=== PATIENT | female | born 1995 | race Caucasian/White ===

== ENCOUNTER 2017-06-18 20:25 | Emergency (ER) | payer BC ==
[2017-06-18] MEDS ORDERED: Sodium Chloride 0.9% 1,000 ML IV ONE (21:13)
[2017-06-18] MEDS ORDERED: Ketorolac 30 MG/ML SDV IVPUSH ONE (21:13)
[2017-06-18] MEDS ORDERED: Ondansetron 4 MG/2 ML SDV IVPUSH ONE (21:13)
[2017-06-18] MEDS ORDERED: Alum Hydrox/Mag Hydrox/Simeth 15 ML, Metoclopramide 5 MG, Lidocaine 2% 5 ML PO ONE ×3 (21:14)
[2017-06-18] MEDS ORDERED: Pantoprazole 40 MG Vial IVPUSH ONE (21:14)
[2017-06-18] MEDS ORDERED: Sodium Chloride 0.9% 2.5 ML Syringe FLUSH PRN (21:14)
[2017-06-18] MEDS ORDERED: Sodium Chloride 0.9% 10 ML Syringe FLUSH PRN (21:14)
--- NOTE | 2017-06-18 21:15 | EDM.PDOC ---
ED HPI GENERAL MEDICAL PROBLEM - General Chief Complaint: Chest Pain Stated Complaint: SHARP STOMACH PAIN Time Seen by Provider: 06/18/17 21:04 - History of Present Illness INITIAL COMMENTS - FREE TEXT/NARRATIVE: HISTORY AND PHYSICAL: History of present illness: The patient is a healthy 21-year-old female with no past medical past surgical history who presents with complaints of epigastric pain that has been ongoing for the last 1 week and has been pretty constant. The patient says that it waxes and wanes in intensity but is always there and seems to get worse after she eats. She has had anorexia because of the pain. She has not had vomiting or diarrhea and in fact has not has many bowel movements this week as usual. She usually goes once a day and she has been more irregular. Bowel movements are not black or bloody. She has not had a cough runny nose shortness of breath or flank pain or urinary complaints. The patient is in a monogamous lesbian relationship and denies . The patient says she had a slight sore throat last week but that is improved and now she also tells me that she has had a fever for 4 days but it seemed to "break" last night. For the fever she's been only taking NyQuil [id number]-zbioyck and no Tylenol or ibuprofen. She has not taken any specific medications for her abdominal complaints such as Pepto- Bismol Tums or [id number] acid antacids. She has also not taken any over- the-counter pain medications for this. She describes the pain as a fullness and aching which gets sharp after eating. Currently in the ER she says it is just dull and she does feel somewhat bloated. She has no lower abdominal pain and she says that the discomfort does not localize right or left but sits in the epigastrium. She has no chest pain Review of systems: As per history of present illness and below otherwise all systems reviewed and negative. Past medical history: As per history of present illness and as reviewed below otherwise noncontributory. Surgical history: As per history of present illness and as reviewed below otherwise noncontributory. Social history: No reported history of drug or alcohol abuse. Family history: As per history of present illness and as reviewed below otherwise noncontributory. Physical exam: Gen.: Well-developed well-nourished thin female who is nontoxic and speaking clearly and easily in the ED. Vital signs have been reviewed by me. HEENT: Atraumatic, normocephalic, pupils reactive, negative for conjunctival pallor or scleral icterus, mucous membranes moist, throat clear of exudates but there is some posterior oropharyngeal erythema, there is no cervical adenopathy or nuchal rigidity, neck supple, nontender, trachea midline. Lungs: Clear to auscultation, breath sounds equal bilaterally, chest nontender. Heart: S1S2, regular, negative for clicks, rubs, or JVD. Abdomen: Soft, nondistended, there is only minimal tenderness on deep palpation in the epigastrium which does not localize right or left. Bowel sounds are hypoactive and there is no tympany on percussion. Negative for masses or hepatosplenomegaly. Pelvis: Stable nontender. Genitourinary: Deferred. Rectal: Deferred. Extremities: Atraumatic, negative for cords or calf pain. Neurovascular unremarkable. Neuro: Awake, alert, oriented. Cranial nerves II through XII unremarkable. Cerebellum unremarkable. Motor and sensory unremarkable throughout. Exam nonfocal. Diagnostics: EKG CBC CMP amylase lipase rapid strep influenza swab lactic acid UA UCG chest x -ray H. pylori Therapeutics: IV, IV fluids Zofran Protonix Toradol GI cocktail Rocephin I discussed with the patient and her partner at bedside the testing results and the care plan for outpatient follow-up. I've advised her to push hydration watch her diet avoid caffeinated products. I will give her Carafate and Protonix for home but if strongly advised that she needs an endoscopy to confirm the diagnosis and to rule out possible things that I'm not able to diagnose here in the ER. She states understanding I will give her the referral numbers for our clinics. Advised on reasons to return to the ED. I will also give her antibiotics for home for her UTI. She is aware that a urine culture was sent and she'll be contacted if the care plan changes Impression: Epigastric pain/distal esophagitis, UTI Definitive disposition and diagnosis as appropriate pending reevaluation and review of above. Middle Chest Pain Score (Numeric/FACES): 7 - Related Data Allergies Allergy/AdvReac Type Severity Reaction Status Date / Time No Known Allergies Allergy Verified 06/18/17 21:06 Home Meds: Home Meds . [No Known Home Meds] 06/18/17 [History] ED ROS GENERAL - Review of Systems Review Of Systems: ROS reveals no pertinent complaints other than HPI. ED EXAM, GENERAL - Physical Exam Exam: See Below (See dictation) Course - Vital Signs Last Recorded V/S: Last Vital Signs Temp 36.2 C 06/18/17 23:56 Pulse 86 06/18/17 23:56 Resp 17 06/18/17 23:56 BP 109/62 06/18/17 23:56 Pulse Ox 96 06/18/17 23:56 - Orders/Labs/Meds Orders: Active Orders 24 hr Category Date Time Status Cardiac Monitoring [RC] . DIRECTED Care 06/18/17 21:13 Active EKG Documentation Completion [RC] STAT Care 06/18/17 21:13 Active Oxygen Therapy, ED [RC] ASDIRECTED Care 06/18/17 21:13 Active Pulse Oximetry [RC] ASDIRECTED Care 06/18/17 21:13 Active Abdomen Pelvis w Cont [CT] Stat Exams 06/18/17 22:19 Taken Chest 2V [CR] Stat Exams 06/18/17 21:13 Taken CULTURE STREP A CONFIRMATION [RM] Stat Lab 06/18/17 21:40 Results CULTURE URINE [RM] Stat Lab 06/18/17 21:44 Received STREP SCRN A RAPID W CULT CONF [RM] Stat Lab 06/18/17 21:40 Results Sodium Chloride 0.9% [Saline Flush] Med 06/18/17 21:14 Active 10 ml FLUSH ASDIRECTED PRN Sodium Chloride 0.9% [Saline Flush] Med 06/18/17 21:14 Active 2.5 ml FLUSH ASDIRECTED PRN cefTRIAXone [Rocephin in Dextrose,Iso-Osm 1 GM/50 ML] 1 Med 06/18/17 23:42 Active gm Premix Bag 1 bag IV ONETIME Saline Lock Insert [OM.PC] Stat Oth 06/18/17 21:13 Ordered Medication Orders Ceftriaxone Sodium/Dextrose 1 (gm/ Premix) 50 mls @ 100 mls/hr IV ONETIME ONE Stop: 06/19/17 00:11 Last Admin: 06/18/17 23:55 Dose: 100 mls/hr Sodium Chloride (Saline Flush) 10 ml FLUSH ASDIRECTED PRN PRN Reason: Keep Vein Open Last Admin: 06/18/17 21:30 Dose: 10 ml Sodium Chloride (Saline Flush) 2.5 ml FLUSH ASDIRECTED PRN PRN Reason: Keep Vein Open Last Admin: 06/18/17 21:30 Dose: 2.5 ml Labs: Laboratory Tests 06/18/17 06/18/17 06/18/17 Range/Units 20:25 21:25 21:25 WBC 7.50 (4.0-11.0) K/uL RBC 4.77 (4.30-5.90) M/uL Hgb 13.8 (12.0-16.0) g/dL Hct 40.1 (36.0-46.0) % MCV 84.1 (80.0-98.0) fL MCH 28.9 (27.0-32.0) pg MCHC 34.4 (31.0-37.0) g/dL RDW Std Deviation 39.0 (28.0-62.0) fl RDW Coeff of Demetrio 13 (11.0-15.0) % Plt Count 186 (150-400) K/uL MPV 10.00 (7.40-12.00) fL Neut % (Auto) 69.1 (48.0-80.0) % Lymph % (Auto) 16.7 (16.0-40.0) % Anderson % (Auto) 13.6 (0.0-15.0) % Eos % (Auto) 0.5 (0.0-7.0) % Baso % (Auto) 0.1 (0.0-1.5) % Neut # (Auto) 5.2 (1.4-5.7) K/uL Lymph # (Auto) 1.3 (0.6-2.4) K/uL Anderson # (Auto) 1.0 H (0.0-0.8) K/uL Eos # (Auto) 0.0 (0.0-0.7) K/uL Baso # (Auto) 0.0 (0.0-0.1) K/uL Nucleated RBC % 0.0 /100WBC Nucleated RBCs # 0 K/uL Lactate 0.9 (0.20-2.00) mmol/L Sodium (136-146) mmol/L Potassium (3.5-5.1) mmol/L Chloride (98-110) mmol/L Carbon Dioxide (21-31) mmol/L BUN (6.0-23.0) mg/dL Creatinine (0.6-1.5) mg/dL Est Cr Clr Drug Dosing mL/min Estimated GFR (MDRD) ml/min Glucose (60-110) mg/dL Calcium (8.8-10.8) mg/dL Total Bilirubin (0.1-1.5) mg/dL AST (5-40) IU/L ALT (8-54) IU/L Alkaline Phosphatase (40-150) Total Protein (6.0-8.0) g/dL Albumin (3.5-5.0) g/dL Globulin (2.0-3.5) g/dL Albumin/Globulin Ratio (1.3-2.8) Amylase (10-90) U/L Lipase (7-80) U/L Urine Color Urine Appearance Urine pH (5.0-8.0) Ur Specific [place] (1.001-1.035) Urine Protein (NEGATIVE) mg/dL Urine Glucose (UA) (NEGATIVE) mg/dL Urine Ketones (NEGATIVE) mg/dL Urine Occult Blood (NEGATIVE) Urine Nitrite (NEGATIVE) Urine Bilirubin (NEGATIVE) Urine Ictotest Urine Urobilinogen (<2.0) EU/dL Ur Leukocyte Esterase (NEGATIVE) Urine RBC (0-2/HPF) Urine WBC (0-5/HPF) Ur Epithelial Cells (NONE-FEW) Urine Bacteria (NEGATIVE) Urine Mucus (NONE-MOD) Urine HCG, Qual (NEGATIVE) H. pylori IgG Antibody NEGATIVE (NEG) 06/18/17 06/18/17 06/18/17 Range/Units 21:25 21:44 21:44 WBC (4.0-11.0) K/uL RBC (4.30-5.90) M/uL Hgb (12.0-16.0) g/dL Hct (36.0-46.0) % MCV (80.0-98.0) fL MCH (27.0-32.0) pg MCHC (31.0-37.0) g/dL RDW Std Deviation (28.0-62.0) fl RDW Coeff of Demetrio (11.0-15.0) % Plt Count (150-400) K/uL MPV (7.40-12.00) fL Neut % (Auto) (48.0-80.0) % Lymph % (Auto) (16.0-40.0) % Anderson % (Auto) (0.0-15.0) % Eos % (Auto) (0.0-7.0) % Baso % (Auto) (0.0-1.5) % Neut # (Auto) (1.4-5.7) K/uL Lymph # (Auto) (0.6-2.4) K/uL Anderson # (Auto) (0.0-0.8) K/uL Eos # (Auto) (0.0-0.7) K/uL Baso # (Auto) (0.0-0.1) K/uL Nucleated RBC % /100WBC Nucleated RBCs # K/uL Lactate (0.20-2.00) mmol/L Sodium 138 (136-146) mmol/L Potassium 4.1 (3.5-5.1) mmol/L Chloride 102 (98-110) mmol/L Carbon Dioxide 21 (21-31) mmol/L BUN 13 (6.0-23.0) mg/dL Creatinine 0.7 (0.6-1.5) mg/dL Est Cr Clr Drug Dosing 121.01 mL/min Estimated GFR (MDRD) > 60.0 ml/min Glucose 80 (60-110) mg/dL Calcium 9.4 (8.8-10.8) mg/dL Total Bilirubin 0.6 (0.1-1.5) mg/dL AST 16 (5-40) IU/L ALT 7 L (8-54) IU/L Alkaline Phosphatase 57 (40-150) Total Protein 7.5 (6.0-8.0) g/dL Albumin 4.2 (3.5-5.0) g/dL Globulin 3.3 (2.0-3.5) g/dL Albumin/Globulin Ratio 1.3 (1.3-2.8) Amylase 29 (10-90) U/L Lipase < 9 (7-80) U/L Urine Color YELLOW Urine Appearance SLT CLOUDY Urine pH 6.0 (5.0-8.0) Ur Specific [place] >= 1.030 (1.001-1.035) Urine Protein TRACE (NEGATIVE) mg/dL Urine Glucose (UA) NEGATIVE (NEGATIVE) mg/dL Urine Ketones >=80 (NEGATIVE) mg/dL Urine Occult Blood TRACE-INTACT (NEGATIVE) Urine Nitrite NEGATIVE (NEGATIVE) Urine Bilirubin MODERATE H (NEGATIVE) Urine Ictotest NEGATIVE Urine Urobilinogen 0.2 (<2.0) EU/dL Ur Leukocyte Esterase MODERATE (NEGATIVE) Urine RBC 0-2 (0-2/HPF) Urine WBC 2-8 (0-5/HPF) Ur Epithelial Cells FEW (NONE-FEW) Urine Bacteria 1+ H (NEGATIVE) Urine Mucus FEW (NONE-MOD) Urine HCG, Qual NEGATIVE (NEGATIVE) H. pylori IgG Antibody (NEG) Meds: Medications Generic Name Dose Route Start Last Admin Trade Name Scooter PRN Reason Stop Dose Admin Ceftriaxone Sodium/Dextrose 1 50 mls @ 100 mls/hr 06/18/17 23:42 06/18/17 23: 55 gm/ Premix IV 06/19/17 00:11 100 mls/hr ONETIME ONE Administration Sodium Chloride 10 ml 06/18/17 21:14 06/18/17 21:30 Saline Flush FLUSH 10 ml ASDIRECTED PRN Administration Keep Vein Open Sodium Chloride 2.5 ml 06/18/17 21:14 06/18/17 21:30 Saline Flush FLUSH 2.5 ml ASDIRECTED PRN Administration Keep Vein Open Discontinued Medications Generic Name Dose Route Start Last Admin Trade Name Scooter PRN Reason Stop Dose Admin Al Hydroxide/Mg Hydroxide 15 0 ml 06/18/17 21:14 06/18/17 21:29 ml/ Metoclopramide HCl 5 mg/ PO 06/18/17 21:15 25 each Lidocaine HCl 5 ml ONETIME ONE Administration Sodium Chloride 1,000 mls @ 999 mls/hr 06/18/17 21:13 06/18/17 21:21 Normal Saline IV 06/18/17 22:13 999 mls/hr STAT ONE Administration Iopamidol 500 ml 06/18/17 23:06 06/18/17 23:08 Isovue Multipack-370 (76%) IVPUSH 06/18/17 23:07 100 ml ONETIME STA Administration Ketorolac Tromethamine 30 mg 06/18/17 21:13 06/18/17 21:28 Toradol IVPUSH 06/18/17 21:14 30 mg ONETIME ONE Administration Ondansetron HCl 4 mg 06/18/17 21:13 06/18/17 21:29 Zofran IVPUSH 06/18/17 21:14 4 mg ONETIME ONE Administration Pantoprazole Sodium 40 mg 06/18/17 21:14 06/18/17 21:29 Protonix Iv IVPUSH 06/18/17 21:15 40 mg NOW ONE Administration Departure - Departure Time of Disposition: 00:03 Disposition: Home, Self-Care 01 Condition: Good Clinical Impression: Esophagitis UTI (urinary tract infection) Qualifiers: Urinary tract infection type: site unspecified Hematuria presence: without hematuria Qualified Code(s): N39.0 - Urinary tract infection, site not specified - Discharge Information Referrals: PCP,None [Primary Care Provider] - Forms: ED Department Discharge Additional Instructions: The following information is given to patients seen in the emergency department who are being discharged to home. This information is to outline your options for follow-up care. We provide all patients seen in our emergency department with a follow-up referral. The need for follow-up, as well as the timing and circumstances, are variable depending upon the specifics of your emergency department visit. If you don't have a primary care physician on staff, we will provide you with a referral. We always advise you to contact your personal physician following an emergency department visit to inform them of the circumstance of the visit and for follow-up with them and/or the need for any referrals to a consulting specialist. The emergency department will also refer you to a specialist when appropriate. This referral assures that you have the opportunity for followup care with a specialist. All of these measure are taken in an effort to provide you with optimal care, which includes your followup. Under all circumstances we always encourage you to contact your private physician who remains a resource for coordinating your care. When calling for followup care, please make the office aware that this follow-up is from your recent emergency room visit. If for any reason you are refused follow-up, please contact the [facility] emergency department at and ask to speak to the emergency department charge nurse. Primary care- [place] [address] [facility] [address] [place] [address] [address] [place] [address] Please contact one of our providers in the clinic to reevaluate our care plan and to reevaluate any new symptoms in the next few days. These also contact our surgery department to schedule an upper endoscopy as we discussed. Take all medications as prescribed and you may start these prescriptions tomorrow. Push hydration and avoid caffeinated products and fatty foods junk foods spicy foods and fast foods. Return to ER as needed and as discussed - My Orders Last 24 Hours: My Active Orders 06/18/17 21:13 Cardiac Monitoring [RC] . DIRECTED EKG Documentation Completion [RC] STAT Oxygen Therapy, ED [RC] ASDIRECTED Pulse Oximetry [RC] ASDIRECTED Chest 2V [CR] Stat Saline Lock Insert [OM.PC] Stat 06/18/17 21:14 Sodium Chloride 0.9% [Saline Flush] 10 ml FLUSH ASDIRECTED PRN Sodium Chloride 0.9% [Saline Flush] 2.5 ml FLUSH ASDIRECTED PRN 06/18/17 21:40 CULTURE STREP A CONFIRMATION [RM] Stat STREP SCRN A RAPID W CULT CONF [RM] Stat 06/18/17 21:44 CULTURE URINE [RM] Stat 06/18/17 22:19 Abdomen Pelvis w Cont [CT] Stat 06/18/17 23:42 cefTRIAXone [Rocephin in Dextrose,Iso-Osm 1 GM/50 ML] 1 gm Premix Bag 1 bag IV ONETIME - Assessment/Plan Last 24 Hours: My Active Orders 06/18/17 21:13 Cardiac Monitoring [RC] . DIRECTED EKG Documentation Completion [RC] STAT Oxygen Therapy, ED [RC] ASDIRECTED Pulse Oximetry [RC] ASDIRECTED Chest 2V [CR] Stat Saline Lock Insert [OM.PC] Stat 06/18/17 21:14 Sodium Chloride 0.9% [Saline Flush] 10 ml FLUSH ASDIRECTED PRN Sodium Chloride 0.9% [Saline Flush] 2.5 ml FLUSH ASDIRECTED PRN 06/18/17 21:40 CULTURE STREP A CONFIRMATION [RM] Stat STREP SCRN A RAPID W CULT CONF [RM] Stat 06/18/17 21:44 CULTURE URINE [RM] Stat 06/18/17 22:19 Abdomen Pelvis w Cont [CT] Stat 06/18/17 23:42 cefTRIAXone [Rocephin in Dextrose,Iso-Osm 1 GM/50 ML] 1 gm Premix Bag 1 bag IV ONETIME
[2017-06-18 22:00] LABS: CHLORIDE,CL 102 mmol/L (98-110); SODIUM,NA 138 mmol/L (136-146)
[2017-06-18] MEDS ORDERED: Iopamidol 755 MG/ML 500 ML Multipack Bottle IVPUSH STA (23:06)
[2017-06-18] MEDS ORDERED: cefTRIAXone 1 GM in Premix Bag 1 BAG IV ONE (23:42)
--- NOTE | 2017-06-20 15:16 | CR ---
EXAM DATE: 06/18/17 PATIENT'S AGE: 21 Patient: RAFAEL WARD Facility: [place], [place] Site . Site : 1995 Study: XRay Chest [id number]/18/2017 10:49:22 PM Ordering Physician: Myles Merino Final Report: INDICATION: pain/sob INDICATION: Pain. Shortness of breath. TECHNIQUE: Chest 2 views. COMPARISON: None FINDINGS: Cardiovascular and mediastinum: Heart size and vasculature are normal in caliber and appearance. Mediastinum is within normal limits. Lungs and pleural spaces: Lungs are clear. No sign of infiltrate or mass. No sign of pleural effusion. No pneumothorax. Bones and soft tissues: No significant findings. IMPRESSION: Lungs are clear. Dictated by Ranjeet Fernandes MD @ 06/18/2017 11:09:44 PM Dictated by: Ranjeet Fernandes MD @ 06/18/2017 23:09:50 (Electronic Signature) Report Signed by Proxy. ALEX
--- NOTE | 2017-06-20 15:21 | CT ---
EXAM DATE: 06/18/17 PATIENT'S AGE: 21 Patient: RAFAEL WARD Facility: [place], [place] Site . Site : 1995 Study: CT Abdomen/Pelvis [id number]/18/2017 11:09:55 PM Ordering Physician: Myles Merino Final Report: INDICATION: Abdominal pain TECHNIQUE: CT Abdomen and pelvis with i.v. contrast. Coronal and sagittal reformats were obtained. CONTRAST: 100 mL Isovue 370 COMPARISON: None FINDINGS: Lower chest: Unremarkable. Liver: Unremarkable. Spleen: Unremarkable. Pancreas: Unremarkable. Gallbladder: Unremarkable. Kidney: Unremarkable. No kidney or ureteral stones or obstruction seen. Adrenal: Unremarkable. GI tract: Mild wall thickening of the distal esophagus is present. Several paraesophageal lymph nodes are noted measuring up to 8 mm. The appendix is not identified. Vascular: Unremarkable. Peritoneum: Unremarkable. No pneumoperitoneum is seen. Small amount of ascites is present and is likely physiologic in origin. Pelvis: Unremarkable. Soft tissue: Unremarkable. Bones: Mild levoscoliosis of the lumbar spine is noted. IMPRESSION: 1. Mild wall thickening of the distal esophagus is present. Several paraesophageal lymph nodes are noted measuring up to 8 mm. Further evaluation with endoscopy is recommended. Dictated by Alfred Faith MD @ 06/18/2017 11:31:38 PM Dictated by: Alfred Faith MD @ 06/18/2017 23:31:42 (Electronic Signature) Report Signed by Proxy. [facility]
== END 2017-06-19 00:30 | disposition home or self-care (01) ==
LOC: MW.ED 20:25
DX: K20.9 Esophagitis, unspecified (principal); N39.0 Urinary tract infection, site not specified
CPT/HCPCS: 36415; 71020; 74177; 80053; 81001; 81025; 82150; 83605; 83690; 85025; 86677; 87081; 87086; 87804; 87880; 93005; 96361; 96365; 96375; 99285; A9270; C9113; J0696; J1885; J2405; J7040; Q9967

== ENCOUNTER 2018-09-29 13:41 | Inpatient (IN) | payer OTHER ==
[2018-09-29] MEDS ORDERED: Dinoprostone 10 MG Insert VAG PRN (13:49)
[2018-09-29] MEDS ORDERED: Lidocaine 1% 50 ML MDV INJECT PRN (13:49)
[2018-09-29] MEDS ORDERED: Carboprost Tromethamine 250 MCG/1 ML Amp IM PRN (13:49)
[2018-09-29] MEDS ORDERED: Misoprostol 200 MCG Tab PO PRN (13:49)
[2018-09-29] MEDS ORDERED: Terbutaline 1 MG/ML SDV SUBCUT PRN (13:49)
[2018-09-29] MEDS ORDERED: Methylergonovine 0.2 MG/1 ML Amp IM PRN ×2 (13:49→22:33)
[2018-09-29] MEDS ORDERED: Nalbuphine 10 MG/1 ML Vial IVPUSH PRN (13:49)
[2018-09-29] MEDS ORDERED: Water For Irrigation,Sterile 1,000 ML Container IRR PRN (13:49)
[2018-09-29] MEDS ORDERED: Tranexamic Acid 1,000 MG in Sodium Chloride 0.9% 100 ML IV PRN (13:49)
[2018-09-29] MEDS ORDERED: Butorphanol 1 MG/ML SDV IVPUSH PRN (13:49)
[2018-09-29] MEDS ORDERED: Ondansetron 4 MG/2 ML SDV IV PRN (13:49)
[2018-09-29] MEDS ORDERED: Sodium Chloride 0.9% 10 ML Syringe FLUSH PRN (13:49)
[2018-09-29] MEDS ORDERED: Sodium Chloride 0.9% 2.5 ML Syringe FLUSH PRN (13:49)
[2018-09-29] MEDS ORDERED: Oxytocin/0.9 % Sodium Chloride 30 UNIT/500 ML BAG IV SCH ×2 (14:00)
[2018-09-29] MEDS ORDERED: Ampicillin 2 GM in Sodium Chloride 0.9% 100 ML IV ONE (14:15)
[2018-09-29] MEDS: Lactated Ringers 1,000 ML IV SCH ×2 (14:30→19:56)
[2018-09-29] MEDS: Ampicillin 1 GM in Sodium Chloride 0.9% 50 ML IV SCH ×2 (18:22→21:51)
--- NOTE | 2018-09-29 22:31 | PCM.DEL ---
L & D Note - General Info Date of Service: 09/29/18 Mother's Due Date: 09/26/18 - Delivery Note Labor: Induced by Oxytocin Delivery Outcome: Livebirth Infant Delivery Method: Spontaneous Vaginal Delivery-Single Presentation: Left Occiput Anterior (ELENA) Nuchal Cord: None Prep: Other Anesthesia Type: None Episiotomy Type: None Laceration: 2nd Degree Suture type: Vicryl Suture size: 3-0 Placenta: Intact, Spontaneous Cord: 3 Vessels Estimated Blood Loss: 300 Resuscitation Needed: No : Suctioned Score 1 min: 9 Score 5 min: 9 Delivery Comments (Free Text/Narrative):: Liveborn female 9/9. Rapid progress from 4 cm, SROM at 2120 to delivery at 2205 - General Info Date of Service: 09/29/18 - Patient Data Weight - Most Recent: 78.925 kg Lab Results Last 24 Hours: Laboratory Results - last 24 hr 09/29/18 09/29/18 Range/Units 14:27 14:27 WBC 9.72 (4.0-11.0) K/uL RBC 4.43 (4.30-5.90) M/uL Hgb 12.8 (12.0-16.0) g/dL Hct 37.5 (36.0-46.0) % MCV 84.7 (80.0-98.0) fL MCH 28.9 (27.0-32.0) pg MCHC 34.1 (31.0-37.0) g/dL RDW Std Deviation 44.8 (28.0-62.0) fl RDW Coeff of Demetrio 15 (11.0-15.0) % Plt Count 159 (150-400) K/uL MPV 9.70 (7.40-12.00) fL Nucleated RBC % 0.0 /100WBC Nucleated RBCs # 0 K/uL Blood Type B NEGATIVE Antibody Screen NEGATIVE Med Orders - Current: Current Medications Butorphanol Tartrate (Stadol) 1 mg IVPUSH Q1H PRN PRN Reason: Pain Last Admin: 09/29/18 21:11 Dose: 1 mg Carboprost Tromethamine (Hemabate Ds) 250 mcg IM ASDIRECTED PRN PRN Reason: Post Hemorrhage Dinoprostone (Cervidil) 10 mg VAG ONETIME PRN PRN Reason: Cervical Ripening Ampicillin Sodium 1 gm/ Sodium (Chloride) 50 mls @ 100 mls/hr IV Q4H [facility] Last Admin: 09/29/18 21:51 Dose: 100 mls/hr Lactated Ringer's (Ringers, Lactated) 1,000 mls @ 150 mls/hr IV ASDIRECTED DAYANNA Last Admin: 09/29/18 19:56 Dose: 150 mls/hr Oxytocin/Sodium Chloride (Oxytocin 30 Unit/500 Ml-Ns) 30 unit in 500 mls @ 999 mls/hr IV TITRATE DAYANNA Oxytocin/Sodium Chloride (Oxytocin 30 Unit/500 Ml-Ns) 30 unit in 500 mls @ 2 mls/hr IV TITRATE DAYANNA; Protocol Last Titration: 09/29/18 21:00 Dose: 6 munits/min, 6 mls/hr Tranexamic Acid 1,000 mg/ (Sodium Chloride) 110 mls @ 660 mls/hr IV ONETIME PRN PRN Reason: Bleeding Lidocaine HCl (Xylocaine 1%) 50 ml INJECT ONETIME PRN PRN Reason: Laceration repair Methylergonovine Maleate (Methergine) 0.2 mg IM ASDIRECTED PRN PRN Reason: Post Hemorrhage Misoprostol (Cytotec) 200 mcg PO ONETIME PRN PRN Reason: Post Hemorrhage Nalbuphine HCl (Nubain) 10 mg IVPUSH Q1H PRN PRN Reason: Pain (severe 7-10) Ondansetron HCl (Zofran) 4 mg IV Q6H PRN PRN Reason: Nausea/Vomiting Sodium Chloride (Saline Flush) 10 ml FLUSH ASDIRECTED PRN PRN Reason: Keep Vein Open Sodium Chloride (Saline Flush) 2.5 ml FLUSH ASDIRECTED PRN PRN Reason: Keep Vein Open Sterile Water (Sterile Water For Irrigation) 1,000 ml IRR ASDIRECTED PRN PRN Reason: delivery Terbutaline Sulfate (Brethine) 0.25 mg SUBCUT ASDIRECTED PRN PRN Reason: Tacysystole Discontinued Medications Ampicillin Sodium 2 gm/ Sodium (Chloride) 100 mls @ 200 mls/hr IV ONETIME ONE Stop: 09/29/18 14:44 Last Admin: 09/29/18 14:40 Dose: 200 mls/hr - Problem List & Annotations (1) Vaginal delivery SNOMED Code(s): 528676607 Code(s): O80 - ENCOUNTER FOR FULL-TERM UNCOMPLICATED DELIVERY Status: Acute Current Visit: Yes - Problem List Review Problem List Initiated/Reviewed/Updated: Yes
[2018-09-29] MEDS ORDERED: Witch Hazel Medicated Pads 40/Jar TOP PRN (22:33)
[2018-09-29] MEDS ORDERED: Ibuprofen 800 MG Tab PO PRN (22:33)
[2018-09-29] MEDS ORDERED: Acetaminophen 500 MG Tab PO PRN ×2 (22:33)
[2018-09-29] MEDS ORDERED: oxyCODONE 5 MG Tab PO PRN (22:33)
[2018-09-29] MEDS ORDERED: Benzocaine/Menthol 20%-0.5% Spray 78 GM Cannister TOP PRN (22:33)
[2018-09-29] MEDS ORDERED: Docusate Sodium 100 MG Cap PO PRN (22:33)
[2018-09-29] MEDS ORDERED: Bisacodyl 10 MG Supp RECTAL PRN (22:33)
[2018-09-29] MEDS ORDERED: Ibuprofen 400 MG Tab PO PRN (22:33)
[2018-09-29] MEDS ORDERED: Lanolin 100% Cream 7 GM Tube TOP PRN (22:33)
--- NOTE | 2018-09-29 23:07 | OR ---
SURGEON: Karol Mcelroy M.D. DATE OF PROCEDURE: 09/29/2018 PREOPERATIVE DIAGNOSES: 1. A 40 and 3/7 weeks' intrauterine . 2. Abnormal testing. 3. Induction of labor. 4. Group B Streptococcus positive. POSTOPERATIVE DIAGNOSES: 1. A 40 and 3/7 weeks' intrauterine . 2. Abnormal testing. 3. Induction of labor. 4. Group B Streptococcus positive. PROCEDURES: Pitocin induction of labor, term spontaneous vaginal delivery, repair of second- degree laceration. ANESTHESIA: Local. ESTIMATED BLOOD LOSS: Less than 300 mL. FINDINGS: Live born female. scores 9 and 9. Weight is pending at the time of dictation. COMPLICATIONS: None known. DISPOSITION: Stable to recovery. BRIEF HISTORY: This is a 22-year-old female. She is G2, P0-0-1-0. She presents at 40 and 3/7 weeks' gestation for postdate appointment with biophysical profile and NST. On her NST, she had a contraction followed by a late deceleration. Therefore, decision was made to proceed with induction of labor. Her cervix was 1 to 2, 50%, and -3 station. She received ampicillin as she was group B strep positive. She is known to be B negative. She has received RhoGAM during the . She was admitted to Labor and Delivery. She received Pitocin. She progressed to 4 cm at approximately 2120 hours. At this time, she had spontaneous rupture of membranes. She progressed very rapidly to complete and delivered at 2205 hours. DESCRIPTION OF PROCEDURE: With the patient in dorsal lithotomy position, the patient pushed over 10-minute time period to a 5+ station at which time the head was delivered spontaneously and atraumatically over the perineum with support with subsequent delivery of the infant's shoulders and body without any difficulty. The was bulb suctioned by nose and mouth, and after the cord had ceased to pulsate, was doubly clamped and cut, and the infant was handed to the mother in the presence of nurse attending delivery. The infant was a liveborn female. scores 9 and 9. Weight was pending at the time of dictation. A segment of cord was doubly clamped and set aside for cord gases which were drawn later. Pitocin was initiated after delivery of the infant to assist with delivery. The placenta which was delivered spontaneously, Brown intact with 3 vessels. Upon inspection of the pelvis and perineum, there were no periurethral, vaginal sidewall, cervical, or rectal lacerations. There was a small second-degree perineal laceration extending slightly to the right which was repaired after receiving 10 mL of 1% lidocaine. The repair was performed using 3-0 Vicryl in a running locked fashion for the vaginal mucosa and a couple of deep sutures in the perineum and subcuticular sutures for the skin. Final sponge, needle, and instrument counts were correct. There were no known complications. Mother and baby remained in LDRP in good condition. VEDA / FLORENTINO /[id number]
--- NOTE | 2018-09-30 10:29 | PCM.PNPP ---
- General Info Date of Service: 09/30/18 Functional Status: Reports: Pain Controlled, Tolerating Diet, Ambulating, Urinating, New Symptoms - Review of Systems General: Reports: No Symptoms HEENT: Reports: No Symptoms Pulmonary: Reports: No Symptoms Cardiovascular: Reports: No Symptoms Gastrointestinal: Reports: No Symptoms Genitourinary: Reports: No Symptoms Musculoskeletal: Reports: No Symptoms Skin: Reports: No Symptoms Neurological: Reports: No Symptoms Psychiatric: Reports: No Symptoms - Patient Data Vital Signs - Most Recent: Last Vital Signs Temp 37.0 C 09/30/18 08:00 Pulse 82 09/30/18 08:00 Resp 18 09/30/18 08:00 BP 102/58 L 09/30/18 08:00 Pulse Ox 97 09/30/18 08:00 Weight - Most Recent: 78.925 kg Lab Results - Last 24 Hours: Laboratory Results - last 24 hr 09/29/18 09/29/18 09/29/18 Range/Units 14:27 14:27 22:05 WBC 9.72 (4.0-11.0) K/uL RBC 4.43 (4.30-5.90) M/uL Hgb 12.8 (12.0-16.0) g/dL Hct 37.5 (36.0-46.0) % MCV 84.7 (80.0-98.0) fL MCH 28.9 (27.0-32.0) pg MCHC 34.1 (31.0-37.0) g/dL RDW Std Deviation 44.8 (28.0-62.0) fl RDW Coeff of Demetrio 15 (11.0-15.0) % Plt Count 159 (150-400) K/uL MPV 9.70 (7.40-12.00) fL Nucleated RBC % 0.0 /100WBC Nucleated RBCs # 0 K/uL Cord ABG pH 7.237 (7.18-7.38) Cord ABG Base Excess -4 (-10--2) Cord VBG pH 7.351 (7.25-7.45) Cord VBG Base Excess -3 (-10--2) Blood Type B NEGATIVE Antibody Screen NEGATIVE Rhogam Indicated 09/29/18 09/30/18 Range/Units 22:35 06:09 WBC (4.0-11.0) K/uL RBC (4.30-5.90) M/uL Hgb 11.1 L (12.0-16.0) g/dL Hct 33.1 L (36.0-46.0) % MCV (80.0-98.0) fL MCH (27.0-32.0) pg MCHC (31.0-37.0) g/dL RDW Std Deviation (28.0-62.0) fl RDW Coeff of Demetrio (11.0-15.0) % Plt Count (150-400) K/uL MPV (7.40-12.00) fL Nucleated RBC % /100WBC Nucleated RBCs # K/uL Cord ABG pH (7.18-7.38) Cord ABG Base Excess (-10--2) Cord VBG pH (7.25-7.45) Cord VBG Base Excess (-10--2) Blood Type Antibody Screen Rhogam Indicated NO, MOM+BABY RH NEG Med Orders - Current: Current Medications Acetaminophen (Tylenol Extra Strength) 500 mg PO Q4H PRN PRN Reason: Pain Acetaminophen (Tylenol Extra Strength) 1,000 mg PO Q4H PRN PRN Reason: Pain Benzocaine/Menthol (Dermoplast Pain Relief 20%-0.5% [place]) 78 gm TOP ASDIRECTED PRN PRN Reason: Perineal Comfort Measure Last Admin: 09/30/18 00:34 Dose: 78 gm Bisacodyl (Dulcolax) 10 mg RECTAL ONETIME PRN PRN Reason: Constipation Docusate Sodium (Colace) 100 mg PO BID PRN PRN Reason: Constipation Emollient Ointment (Lansinoh Hpa) 0 gm TOP ASDIRECTED PRN PRN Reason: Sore Nipples Last Admin: 09/30/18 00:34 Dose: 7 gm Ibuprofen (Motrin) 400 mg PO Q4H PRN PRN Reason: Pain Ibuprofen (Motrin) 800 mg PO Q6H PRN PRN Reason: Pain Methylergonovine Maleate (Methergine) 0.2 mg IM ONETIME PRN PRN Reason: Excessive Vaginal Bleeding Oxycodone HCl (Oxycodone) 5 mg PO Q2H PRN PRN Reason: Pain Witch Gayle (Tucks) 1 pad TOP ASDIRECTED PRN PRN Reason: comfort care Last Admin: 09/30/18 00:33 Dose: 1 pad Discontinued Medications Butorphanol Tartrate (Stadol) 1 mg IVPUSH Q1H PRN PRN Reason: Pain Last Admin: 09/29/18 21:11 Dose: 1 mg Carboprost Tromethamine (Hemabate Ds) 250 mcg IM ASDIRECTED PRN PRN Reason: Post Hemorrhage Dinoprostone (Cervidil) 10 mg VAG ONETIME PRN PRN Reason: Cervical Ripening Ampicillin Sodium 2 gm/ Sodium (Chloride) 100 mls @ 200 mls/hr IV ONETIME ONE Stop: 09/29/18 14:44 Last Admin: 09/29/18 14:40 Dose: 200 mls/hr Ampicillin Sodium 1 gm/ Sodium (Chloride) 50 mls @ 100 mls/hr IV Q4H DAYANNA Last Admin: 09/29/18 21:51 Dose: 100 mls/hr Lactated Ringer's (Ringers, Lactated) 1,000 mls @ 150 mls/hr IV ASDIRECTED DAYANNA Last Infusion: 09/29/18 22:05 Dose: 0 mls/hr Oxytocin/Sodium Chloride (Oxytocin 30 Unit/500 Ml-Ns) 30 unit in 500 mls @ 999 mls/hr IV TITRATE DAYANNA Oxytocin/Sodium Chloride (Oxytocin 30 Unit/500 Ml-Ns) 30 unit in 500 mls @ 2 mls/hr IV TITRATE DAYANNA; Protocol Last Titration: 09/29/18 22:05 Dose: 999 munits/min, 999 mls/hr Tranexamic Acid 1,000 mg/ (Sodium Chloride) 110 mls @ 660 mls/hr IV ONETIME PRN PRN Reason: Bleeding Lidocaine HCl (Xylocaine 1%) 50 ml INJECT ONETIME PRN PRN Reason: Laceration repair Last Admin: 09/29/18 22:10 Dose: 50 ml Methylergonovine Maleate (Methergine) 0.2 mg IM ASDIRECTED PRN PRN Reason: Post Hemorrhage Misoprostol (Cytotec) 200 mcg PO ONETIME PRN PRN Reason: Post Hemorrhage Nalbuphine HCl (Nubain) 10 mg IVPUSH Q1H PRN PRN Reason: Pain (severe 7-10) Ondansetron HCl (Zofran) 4 mg IV Q6H PRN PRN Reason: Nausea/Vomiting Sodium Chloride (Saline Flush) 10 ml FLUSH ASDIRECTED PRN PRN Reason: Keep Vein Open Sodium Chloride (Saline Flush) 2.5 ml FLUSH ASDIRECTED PRN PRN Reason: Keep Vein Open Sterile Water (Sterile Water For Irrigation) 1,000 ml IRR ASDIRECTED PRN PRN Reason: delivery Last Admin: 09/29/18 22:00 Dose: 1,000 ml Terbutaline Sulfate (Brethine) 0.25 mg SUBCUT ASDIRECTED PRN PRN Reason: Tacysystole - Infant Interaction Infant Disposition, : [place] in Room with Family Feeding: Breastfed ; Nursed Well Support Person: Mother, Friend - Recovery Exam Fundal Tone: Firm Fundal Level: 1 Fingerbreadths Below Umbilicus Fundal Placement: Midline Lochia Amount: Scant Lochia Color: Rubra/Red Perineum Description: Intact, Minimal Bruising/Swelling Other Perinuem Description: Second degree tear Episiotomy/Laceration: None Bladder Status: Voiding Urinary Elimination: Voided - Exam General: Alert, Oriented HEENT: Pupils Equal Lungs: Normal Respiratory Effort Extremities: Normal Inspection, Non-Tender, No Pedal Edema Skin: Warm, Dry, Intact Neurological: No New Focal Deficit Psy/Mental Status: Alert, Normal Affect, Normal Mood - Problem List & Annotations (1) Vaginal delivery SNOMED Code(s): 483457330 Code(s): O80 - ENCOUNTER FOR FULL-TERM UNCOMPLICATED DELIVERY Status: Acute Current Visit: Yes - Problem List Review Problem List Initiated/Reviewed/Updated: Yes - My Orders Last 24 Hours: My Active Orders 09/29/18 22:33 Patient Status [ADT] Routine May Shower [RC] ASDIRECTED Up ad Nani [RC] ASDIRECTED Vital Signs [RC] PER UNIT ROUTINE Acetaminophen [Tylenol Extra Strength] 1,000 mg PO Q4H PRN Acetaminophen [Tylenol Extra Strength] 500 mg PO Q4H PRN Benzocaine/Menthol [Dermoplast Pain Relief 20%-0.5% [place]] 78 gm TOP ASDIRECTED PRN Bisacodyl [Dulcolax] 10 mg RECTAL ONETIME PRN Docusate Sodium [Colace] 100 mg PO BID PRN Ibuprofen [Motrin] 400 mg PO Q4H PRN Ibuprofen [Motrin] 800 mg PO Q6H PRN Lanolin [Lansinoh HPA] See Dose Instructions TOP ASDIRECTED PRN Methylergonovine [Methergine] 0.2 mg IM ONETIME PRN Witch Gayle [Tucks] 1 pad TOP ASDIRECTED PRN oxyCODONE 5 mg PO Q2H PRN Assess Lochia [WOMSER] Per Unit Routine Assess Uterine Involution [WOMSER] Per Unit Routine Perineal Care [OM.PC] Per Unit Routine Peripheral IV Discontinue [OM.PC] Routine Resuscitation Status Routine 09/30/18 Breakfast Regular Diet [DIET] - Assessment Assessment:: PPD#1 after , stable, minimal lochia, tolerating regular diet. is going well. - Plan Plan:: Continue care, anticipate home tomorrow.
[2018-10-01] MEDS ORDERED: Measles, Mumps & Rubella Vaccine 0.5 ML SDV SUBCUT ONE (09:01)
== END 2018-10-01 12:55 | disposition home or self-care (01) | DRG 807 ==
LOC: MW.OB 13:41 → OBSVTOIN 22:05 → MW.OB 22:05
PROVIDERS: ADMIT Obstetrics & Gynecology; ATTEND Obstetrics & Gynecology
PROC: 3E033VJ Introduction of Other Hormone into Peripheral Vein, Percutaneous Approach (ICD-10-PCS; principal; 2018-09-29)
PROC: 0KQM0ZZ Repair Perineum Muscle, Open Approach (ICD-10-PCS; principal; 2018-09-29)
PROC: 10E0XZZ Delivery of Products of Conception, External Approach (ICD-10-PCS; principal; 2018-09-29)
PROC: 6A550ZT Pheresis of Cord Blood Stem Cells, Single (ICD-10-PCS; principal; 2018-09-29)
PROC: 3E0234Z Introduction of Serum, Toxoid and Vaccine into Muscle, Percutaneous Approach (ICD-10-PCS; 2018-10-01)
DX: O48.0 Post-term pregnancy (principal); Z37.0 Single live birth; O99.824 Streptococcus B carrier state complicating childbirth; Z3A.40 40 weeks gestation of pregnancy; O70.1 Second degree perineal laceration during delivery; Z87.891 Personal history of nicotine dependence; O99.344 Other mental disorders complicating childbirth; F41.9 Anxiety disorder, unspecified; O62.3 Precipitate labor; O76 Abnormality in fetal heart rate and rhythm complicating labor and delivery; Z23 Encounter for immunization
CPT/HCPCS: 36415; 59025; 59409; 82803; 85014; 85018; 85027; 86850; 86900; 86901; 90471; 90707; A9270-GY; J0290; J0595; J2001; J2590; J7030; J7050; J7120